=== PATIENT | male | born 1995 ===

== ENCOUNTER 2017-09-22 17:14 | Emergency (ER) | payer OTHER ==
[2017-09-22] MEDS ORDERED: METOCLOPRAMIDE HCL INJ 5 MG/ML 2 ML VIAL IV STA (18:10)
[2017-09-22] MEDS ORDERED: DEXAMETHASONE SOD INJ 4 MG/ML VIAL IV STA (18:10)
[2017-09-22] MEDS ORDERED: ACETAMINOPHEN 500 MG TAB PO STA (18:10)
[2017-09-22] MEDS ORDERED: DiphenhydrAMINE HCL 50 MG/ML VIAL IV STA (18:10)
--- NOTE | 2017-09-22 18:27 | EMERGENCY ROOM VISIT NOTE ---
History Report prepared by Roddy: Jemma Mcfarland Under the Supervision of: Dr. Luis Dejesus M.D. 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 The patient was sitting in class when he suddenly developed a diffuse headache. About 30 minutes after his headache started he got up and tried to walk. His headache went away, but he developed weakness and numbness/ tingling in his left leg. He states that it felt like his leg was asleep. He sat down and developed some numbness/tingling in his left arm and the left side of his face. This lasted for about 10 minutes and then resolved. He felt like he had some slurred speech as well. The patient went to [facility] and was advised to come to the ED for further evaluation. His numbness, tingling, and weakness have resolved. He is currently just complaining of a right-sided headache that he describes as sharp and rates as a 7/10 in severity. Positive nausea and vomiting. Vomiting helped to alleviate some of his pain. Negative LOC, recent travel, recent changes to medications, recent tick bites, family or personal history of migraines, family or personal history of seizures. Pt denies any recent trauma or injury to his head. Source of History: patient Onset: 3 hours CHURN TENDER Position: head Symptom Intensity: 7/10 Quality: sharp Timing: intermittent Modifying Factors (Relieving): other (vomiting) Associated Symptoms: + nausea, + vomiting, + weakness, + numbness (left extremities and left face), No LOC Review of Systems See HPI for pertinent positives and negatives. A total of ten systems were reviewed and were otherwise negative. Past Medical & Surgical Medical Problems: (1) Diabetes type 2, controlled Family History No pertinent history stated. Social History Smoking Status: Never Smoker Occupation Status: [employer] student Current/Historical Medications Scheduled Dapagliflozin-Metformin HCl (Xigduo Xr 10-1000 mg), 1 TAB PO DAILY Levothyroxine Sodium (Synthroid), 25 MCG PO DAILY Allergies Coded Allergies: No Known Allergies (Unverified , 09/22/17) Physical Exam Vital Signs Date Time Temp Pulse Resp B/P (MAP) Pulse Ox O2 Delivery O2 Flow Rate FiO2 09/22/17 22:25 36.6 78 18 141/80 97 Room Air 09/22/17 21:41 36.5 80 18 130/75 96 Room Air 09/22/17 20:02 36.4 86 18 131/78 Room Air 09/22/17 18:45 72 18 96 Room Air 09/22/17 18:40 100 Room Air 09/22/17 17:23 36.4 68 20 132/87 98 Room Air Physical Exam GENERAL: Awake, alert, well-appearing, NAD HENT: Normocephalic, atraumatic. EYES: Normal conjunctiva. Sclera non-icteric. NECK: Supple. No nuchal rigidity. FROM. No signs of meningismus. RESPIRATORY: CTAB, no rhonchi, wheezing, crackles CARDIAC: RRR, no MRG ABDOMEN: Soft, NTND, BS+ MSK: No chest wall TTP, no LE edema NEURO: CN 2-12 intact, 5/5 upper and lower extremity strength, no dysmetria, no drift, good finger to nose, no sensory deficits. SKIN: No rash or jaundice noted. Medical Decision & Procedures ER Provider Diagnostic Interpretation: Radiology results as stated below per my review and radiologist interpretation: HEAD WITHOUT CONTRAST (CT) CT DOSE: 537.48 mGy.cm HISTORY: Mental status change Evaluate for hemorrhage or pathology TECHNIQUE: Multiaxial CT images of the head were performed without the use of intravenous contrast. A dose lowering technique was utilized adhering to the principles of ALARA. Comparison: None. Findings: The paranasal sinuses and mastoid air cells are clear. The calvarium and skull base are intact. The ventricles and sulci are within normal limits. There is no mass, hematoma, midline shift, or acute infarct. There is suggestion transaxial image 16 of a possible triangular region of low density posterior to the right lateral ventricle. All this is all lobe most likely artifactual, an MRI of the brain is suggested as follow-up. Impression: 1. Triangular region of slightly diminished density posterior to the right lateral ventricle within the right occipital lobe region. 2. Although possibly artifactual, an MRI of the brain is suggested as follow-up. 3. No evidence for acute intracranial hemorrhage. The above report was generated using voice recognition software. It may contain grammatical, syntax or spelling errors. Electronically signed by: Tristian Barr M.D. 09/22/2017 7:12 PM Dictated Date/Time: 09/22/2017 6:59 PM MRI OF THE BRAIN WITHOUT AND WITH IV CONTRAST CLINICAL HISTORY: Headache. Slurred speech. Left leg numbness now resolved. Possible abnormal head CT. COMPARISON STUDY: Head CT performed earlier today. TECHNIQUE: Utilizing a 1.5 Namita magnet and dedicated coil, multiplanar, multiecho imaging of the brain was performed pre and postcontrast administration. IV administration of 10 mL of Gadavist contrast was uneventful. FINDINGS: There are no foci of restricted diffusion. No acute intracranial hemorrhage, midline shift or mass effect is present. Brain volume is normal. Ventricular system is normal. Basilar cisterns are patent. There are no extra-axial collections. Flow-voids for the major intracranial vessels are present. There is no intracranial mass or pathologic enhancement. There is no finding to correspond to the possible abnormality on prior head CT. Therefore, this was artifactual. Calvarial signal is maintained. Orbits, sinuses and mastoid air cells are unremarkable. No parenchymal signal abnormality is identified. IMPRESSION: Normal MRI of the brain. The possible abnormality on prior head CT was artifactual. Electronically signed by: Douglas Pollack M.D. 09/22/2017 9:43 PM Dictated Date/Time: 09/22/2017 9:39 PM Laboratory Results 09/22/17 18:20 Red Blood Count 5.36, Mean Corpuscular Volume 87.3, Mean Corpuscular Hemoglobin 32.5, Mean Corpuscular Hemoglobin Concent 37.2, Mean Platelet Volume 9.0, Neutrophils (%) (Auto) 79.2, Lymphocytes (%) (Auto) 15.9, Monocytes (%) (Auto) 4.1, Eosinophils (%) (Auto) 0.3, Basophils (%) (Auto) 0.2, Neutrophils # (Auto) 10.13, Lymphocytes # (Auto) 2.04, Monocytes # (Auto) 0.52, Eosinophils # (Auto) 0.04, Basophils # (Auto) 0.02 09/22/17 18:20 Test 09/22/17 17:26 09/22/17 18:20 Bedside Glucose 116 mg/dl (70-99) White Blood Count 12.79 K/uL (4.8-10.8) Red Blood Count 5.36 M/uL (4.7-6.1) Hemoglobin 17.4 g/dL (14.0-18.0) Hematocrit 46.8 % (42-52) Mean Corpuscular Volume 87.3 fL (80-100) Mean Corpuscular Hemoglobin 32.5 pg (25-34) Mean Corpuscular Hemoglobin Concent 37.2 g/dl (32-36) Platelet Count 181 K/uL (130-400) Mean Platelet Volume 9.0 fL (7.4-10.4) Neutrophils (%) (Auto) 79.2 % Lymphocytes (%) (Auto) 15.9 % Monocytes (%) (Auto) 4.1 % Eosinophils (%) (Auto) 0.3 % Basophils (%) (Auto) 0.2 % Neutrophils # (Auto) 10.13 K/uL (1.4-6.5) Lymphocytes # (Auto) 2.04 K/uL (1.2-3.4) Monocytes # (Auto) 0.52 K/uL (0.11-0.59) Eosinophils # (Auto) 0.04 K/uL (0-0.5) Basophils # (Auto) 0.02 K/uL (0-0.2) RDW Standard Deviation 38.2 fL (36.4-46.3) RDW Coefficient of Variation 12.1 % (11.5-14.5) Immature Granulocyte % (Auto) 0.3 % Immature Granulocyte # (Auto) 0.04 K/uL (0.00-0.02) Anion Gap 6.0 mmol/L (3-11) Estimated GFR () 138.3 Estimated GFR (Non- 119.3 BUN/Creatinine Ratio 14.4 (10-20) Calcium Level 9.4 mg/dl (8.5-10.1) Lyme Disease IgG Antibody NEG (NEG) Lyme Disease IgM Antibody NEG (NEG) Laboratory results reviewed by me. Medications Administered Medications (Trade) Dose Ordered Sig/Alisia Route Start Time Stop Time Status Last Admin Dose Admin Metoclopramide HCl (Reglan Inj) 10 mg NOW STAT IV 09/22/17 18:10 09/22/17 18:12 DC 09/22/17 18:44 10 MG Acetaminophen (Tylenol Tab) 1,000 mg NOW STAT PO 09/22/17 18:10 09/22/17 18:12 DC 09/22/17 18:41 1,000 MG Dexamethasone Sodium Phosphate (Decadron Inj) 10 mg NOW STAT IV 09/22/17 18:10 09/22/17 18:12 DC 09/22/17 18:42 10 MG Diphenhydramine HCl (Benadryl Inj) 50 mg NOW STAT IV 09/22/17 18:10 09/22/17 18:12 DC 09/22/17 18:41 50 MG Ondansetron HCl (Zofran Inj) 4 mg NOW STAT IV 09/22/17 20:02 09/22/17 20:03 DC 09/22/17 20:09 4 MG ECG Indication: weakness Rate (beats per minute): 79 Rhythm: normal sinus Findings: T-wave inversion (lead 3), other (right axis deviation, normal axis, normal intervals) ED Course 1757: The patient was evaluated in room C12B. A complete history and physical exam was performed. 1956: I updated the patient. His headache has improved but he is still nauseated. He is in agreement with the treatment plan and will be getting an MRI. 2147: I reassessed the patient at this time. He is feeling better and resting comfortably. I discussed the results and treatment plan with the patient. I answered all pertaining questions that he had. He expressed understanding and verbalized agreement. The patient will be discharged home. Medical Decision Differential diagnosis: Etiologies such as migraine headache, meningitis, sinusitis, CO exposure, ICH, SAH, infection, tumor, headache, sinus thrombosis, arterial dissection, as well as others were entertained. The patient is a 22 year old male with a past medical history of DM who presents to the ED with a cc of an intermittent headache beginning about 3 hours CHURN TENDER. She was seen and evaluated the bedside. Patient did complain of some intermittent headache as well as some left-sided numbness which he stated progressively went from his leg and then dissipated and then to his arm and also dissipated and then to the face. Patient states it felt like it was asleep and did not describe it as pins and needles. Patient denies any prior history of migraines or seizures. Patient denies any recent trauma does not take any blood thinning medications. Patient does complain of some mild headache behind the right eye. Patient has a normal and nonfocal neurologic exam. Patient did have blood work completed along with a CT of the brain. CT brain did show a questionable artifact. Given the patient's strange constellation of symptoms with intermittent headache the patient did have an MRI that was completed. This MRI was negative acute. We did discuss the possibility of seizure, complicated migraine, and transient ischemic attack. I believe this may have been more of a complicated migraine. Simple seizure is also possible but less likely. Less likely TIA given that the patient is a fairly young man without any known risk factors and the patient does not have any family history of stroke. Patient had negative Lyme's test in the patient' s other blood work was fairly unremarkable. Patient was not meningitic and was afebrile. Patient is deemed suitable for outpatient follow-up and treatment this time. Patient was given strict follow-up, discharge, and return precautions. All questions were answered. Patient was deemed suitable for outpatient follow-up at this time. Patient agreed with the plan of care and was safely discharged home. The chart was completed utilizing [employer] Speech voice recognition software. Grammatical errors, random word insertions, pronoun errors, and incomplete sentences are an occasional consequence of this system due to software limitations, ambient noise, and hardware issues. Any formal questions or concerns about the content, text, or information contained within the body of this dictation should be directly addressed to the physician for clarification. Medication Reconcilliation Current Medication List: was personally reviewed by me Blood Pressure Screening Patient's blood pressure: Normal blood pressure Impression Primary Impression: Migraine Scribe Attestation The scribe's documentation has been prepared under my direction and personally reviewed by me in its entirety. I confirm that the note above accurately reflects all work, treatment, procedures, and medical decision making performed by me. Departure Information Dispostion Home / Self-Care Referrals No Doctor, Assigned (PCP) [facility] Patient Instructions ED Headache Migraine, ED Smoking Cessation, My [facility] Additional Instructions Please return to the emergency department if you have worsening or recurrent symptoms not amenable to at-home treatment. Please call for a follow-up appointment with her primary care physician. Please take your medications as prescribed. If you have other concerns and/or complaints please feel free to also call your primary care physician's office or return the ED for further evaluation, management, and treatment. Please follow-up with [facility]. If you do have a recurrence of symptoms please return to the emergency department. You may take 600 mg Ibuprofen every 6 hours as needed for pain with food for no more than 2 consecutive days. You may take tylenol 1000 mg every 6 hours as needed for pain. You may take motrin and tylenol separately or at the same time. Take your medications as prescribed. You have been examined and treated today on an emergency basis only. This is not a substitute for, or an effort to provide, complete comprehensive medical care. It is impossible to recognize and treat all injuries or illnesses in a single emergency department visit. It is therefore important that you follow up closely with [facility], your PCP, and/or your specialist(s). Call as soon as possible for an appointment. Thank you for your time and consideration. I look forward to speaking with you again soon. Please don't hesitate to call us if you have any questions. Problem Qualifiers Primary Impression: Migraine Migraine type: unspecified Status migrainosus presence: without status migrainosus Intractability: not intractable Qualified Codes: G43.909 - Migraine, unspecified, not intractable, without status migrainosus
[2017-09-22 18:33] LABS: BASO % 0.2 %; BASO ABS # 0.02 K/uL (0-0.2); EOS % 0.3 %; EOS ABS # 0.04 K/uL (0-0.5); HEMATOCRIT 46.8 % (42-52); HEMOGLOBIN 17.4 g/dL (14.0-18.0); IG# 0.04 K/uL (0.00-0.02); LYMPH % 15.9 %; LYMPH ABS # 2.04 K/uL (1.2-3.4); MEAN CELL VOLUME 87.3 fL (80-100); MEAN CORPUSCULAR HEMOGLOBIN 32.5 pg (25-34); MEAN CORPUSCULAR HGB CONC 37.2 g/dl (32-36); MONO % 4.1 %; MONO ABS # 0.52 K/uL (0.11-0.59); NEUT % 79.2 %; NEUT ABS # 10.13 K/uL (1.4-6.5); PLATELET COUNT 181 K/uL (130-400); RED CELL DISTRIBUTION WIDTH CV 12.1 % (11.5-14.5); RED CELL DISTRIBUTION WIDTH SD 38.2 fL (36.4-46.3); WHITE BLOOD COUNT 12.79 K/uL (4.8-10.8)
[2017-09-22] MEDS ORDERED: LEVO25TA PO (18:35)
[2017-09-22] MEDS ORDERED: DAPA1TAB7 PO (18:35)
[2017-09-22 18:40] VITALS: O2SAT 100
[2017-09-22 18:51] LABS: BLOOD UREA NITROGEN 13 mg/dl (7-18); CALCIUM 9.4 mg/dl (8.5-10.1); CARBON DIOXIDE 28 mmol/L (21-32); CREATININE 0.92 mg/dl (0.60-1.40); GLUCOSE 127 mg/dl (70-99); POTASSIUM 4.4 mmol/L (3.5-5.1); SODIUM 136 mmol/L (136-145)
--- NOTE | 2017-09-22 19:13 | DIAGNOSTIC IMAGING REPORT ---
HEAD WITHOUT CONTRAST (CT) CT DOSE: 537.48 mGy.cm HISTORY: Mental status change Evaluate for hemorrhage or pathology TECHNIQUE: Multiaxial CT images of the head were performed without the use of intravenous contrast. A dose lowering technique was utilized adhering to the principles of ALARA. Comparison: None. Findings: The paranasal sinuses and mastoid air cells are clear. The calvarium and skull base are intact. The ventricles and sulci are within normal limits. There is no mass, hematoma, midline shift, or acute infarct. There is suggestion transaxial image 16 of a possible triangular region of low density posterior to the right lateral ventricle. All this is all lobe most likely artifactual, an MRI of the brain is suggested as follow-up. Impression: 1. Triangular region of slightly diminished density posterior to the right lateral ventricle within the right occipital lobe region. 2. Although possibly artifactual, an MRI of the brain is suggested as follow-up. 3. No evidence for acute intracranial hemorrhage. The above report was generated using voice recognition software. It may contain grammatical, syntax or spelling errors. Electronically signed by: Tristian Barr M.D. 09/22/2017 7:12 PM Dictated Date/Time: 09/22/2017 6:59 PM
[2017-09-22] MEDS ORDERED: ONDANSETRON INJ 2 MG/ML 2 ML VIAL IV STA (20:02)
[2017-09-22] MEDS ORDERED: GADAVIST IV PRN (21:30)
--- NOTE | 2017-09-22 21:45 | DIAGNOSTIC IMAGING REPORT ---
MRI OF THE BRAIN WITHOUT AND WITH IV CONTRAST CLINICAL HISTORY: Headache. Slurred speech. Left leg numbness now resolved. Possible abnormal head CT. COMPARISON STUDY: Head CT performed earlier today. TECHNIQUE: Utilizing a 1.5 Namita magnet and dedicated coil, multiplanar, multiecho imaging of the brain was performed pre and postcontrast administration. IV administration of 10 mL of Gadavist contrast was uneventful. FINDINGS: There are no foci of restricted diffusion. No acute intracranial hemorrhage, midline shift or mass effect is present. Brain volume is normal. Ventricular system is normal. Basilar cisterns are patent. There are no extra-axial collections. Flow-voids for the major intracranial vessels are present. There is no intracranial mass or pathologic enhancement. There is no finding to correspond to the possible abnormality on prior head CT. Therefore, this was artifactual. Calvarial signal is maintained. Orbits, sinuses and mastoid air cells are unremarkable. No parenchymal signal abnormality is identified. IMPRESSION: Normal MRI of the brain. The possible abnormality on prior head CT was artifactual. Electronically signed by: Douglas Pollack M.D. 09/22/2017 9:43 PM Dictated Date/Time: 09/22/2017 9:39 PM
[2017-09-22 22:25] VITALS: BP 141/80; PULSE 78; TEMP 36.6; O2SAT 97
== END 2017-09-22 22:26 | disposition home or self-care (01) ==
LOC: C.EDB 17:17 → C.EDC 22:26
DX: G43.909 Migraine, unspecified, not intractable, without status migrainosus (principal); E11.9 Type 2 diabetes mellitus without complications; Z79.899 Other long term (current) drug therapy

== ENCOUNTER 2017-09-30 19:36 | Emergency (ER) | payer OTHER ==
[~2017-09-30] VITALS: Ht 170.2 cm; Wt 106.1 kg
[~2017-09-30 19:36] MED LIST: DAPA1TAB7 PO; LEVO25TA PO
[2017-09-30 20:09] VITALS: Ht 170.2 cm; Wt 106.1 kg
--- NOTE | 2017-09-30 22:08 | EMERGENCY ROOM VISIT NOTE ---
History Report prepared by Roddy: Sarah Robb Under the Supervision of: Dr. Luis Dejesus M.D. First contact with patient: 21:45 Chief Complaint: NEURO SYMPTOMS Stated Complaint: LEFT SIDE OF BODY NUMB ABOUT AN HOUR AGO Nursing Triage Summary: Patient reports left side of body became numb and immediately followed by a migraine last week and he states "they told me if it happened again to come here. It happened but the migraine isn't as bad". History of Present Illness The patient is a 22 year old male with a past medical history of diabetes and hypothyroidism who presents to the ED with a cc of neurologic symptoms beginning around 1829 this evening. Positive headache. He states he was on campus when all of a sudden, the left side of his body became numb and he developed a migraine headache. He called his roommate to pick him up and came to the ED. He reports he took a nap in the waiting room while waiting to be seen, and when he woke up, his right leg was numb, but his left leg numbness had resolved. He has experienced similar symptoms in the past and states he was told to come to the ED if his symptoms returned. Source of History: patient Onset: 1829 this evening Position: other (left side of body) Timing: resolved Associated Symptoms: + headache Review of Systems See HPI for pertinent positives and negatives. A total of ten systems were reviewed and were otherwise negative. Past Medical & Surgical Medical Problems: (1) Diabetes type 2, controlled (2) Hypothyroidism Social History Smoking Status: Never Smoker Alcohol Use: occasionally Drug Use: none Marital Status: single Housing Status: lives with roommate Occupation Status: [employer] student Current/Historical Medications Scheduled Dapagliflozin-Metformin HCl (Xigduo Xr 10-1000 mg), 1 TAB PO DAILY Levothyroxine Sodium (Synthroid), 25 MCG PO DAILY Scheduled PRN Acetamin/Butalbital/Caffeine (Fioricet), 1 TAB PO TID PRN for Pain Ondansetron Hcl (Zofran), 4 MG PO Q8H PRN for Nausea Allergies Coded Allergies: No Known Allergies (Unverified , 09/22/17) Physical Exam Vital Signs Date Time Temp Pulse Resp B/P (MAP) Pulse Ox O2 Delivery O2 Flow Rate FiO2 09/30/17 23:00 78 16 138/84 98 09/30/17 22:19 36.7 80 18 134/77 97 Room Air 09/30/17 21:57 77 09/30/17 20:09 36.7 89 18 136/90 97 Room Air Physical Exam GENERAL: Awake, alert, well-appearing, NAD HENT: Normocephalic, atraumatic. EYES: Normal conjunctiva. Sclera non-icteric. NECK: Supple. No nuchal rigidity. FROM. RESPIRATORY: CTAB, no rhonchi, wheezing, crackles CARDIAC: RRR, no MRG ABDOMEN: Soft, NTND, BS+ MSK: No chest wall TTP, no LE edema NEURO: CN 2-12 intact, 5/5 upper and lower extremity strength, no dysmetria, no drift, good finger to nose, no sensory deficits. No clonus. SKIN: No rash or jaundice noted. Medical Decision & Procedures Laboratory Results Test 09/30/17 21:51 Bedside Glucose 109 mg/dl (70-99) Medications Administered Medications (Trade) Dose Ordered Sig/Alisia Route Start Time Stop Time Status Last Admin Dose Admin Acetaminophen/ Butalbital/ Caffeine (Fioricet Tab) 2 tab NOW STAT PO 09/30/17 22:09 09/30/17 22:10 DC 09/30/17 22:22 2 TAB Ibuprofen (Advil Tab) 800 mg STK-MED ONCE .ROUTE 09/30/17 22:17 09/30/17 22:18 DC 09/30/17 22:23 800 MG Ondansetron HCl (Zofran Odt) 4 mg NOW STAT PO 09/30/17 22:18 09/30/17 22:19 DC 09/30/17 22:21 4 MG ED Course 2200: The patient was evaluated in room A9B. A complete history and physical exam was performed. 2231: I discussed the patients case with Dr. Vogt, [facility] [place]. He will follow up with the patient in the clinic. 2249: I reevaluated the patient. He is feeling well and resting. I discussed his results and discharge instructions and he verbalized complete understanding and agreement. Medical Decision The patient is a 22 year old male with a past medical history of diabetes and hypothyroidism who presents to the ED with a cc of neurologic symptoms beginning around 1830 this evening. Triage Nursing notes reviewed. Differential diagnoses include but are not limited to complicated migraine, infectious etiology, auto-immune, TIA/CVA, seizure Patient was seen and evaluated the bedside. Of note I did see this patient approximately 8 days prior. During this time the patient had normal blood work and the patient did have negative CT and MRI of the brain. Patient had negative Lyme's test. Patient states that he did have some left-sided body numbness. Patient denies any falls and again he has had no changes since he was last seen. Patient stated he did have some mild headache on the right side of his head. Patient had a nonfocal and normal neurologic exam. The patient had no clonus. Patient denied any numbness or tingling or weakness during my exam. Patient had good finger to nose. I did discuss the patient with the on- call neurologist with whom he would follow-up. He didn't recommend any further workup this time. They stated he was seen in clinic. I did talk with our registered nurse hh case manager to help arrange a follow-up appointment. The patient was agreeable to this plan of care. Patient was deemed suitable for outpatient follow-up and treatment at this time. Patient was given strict follow-up, discharge, and return precautions. All questions were answered. Patient was deemed suitable for outpatient follow-up at this time. Patient agreed with the plan of care and was safely discharged home. Medication Reconcilliation Current Medication List: was personally reviewed by me Blood Pressure Screening Patient's blood pressure: Normal blood pressure Blood pressure disposition: Did not require urgent referral Consults Time Called: 2229 Consulting Physician: [facility] Returned Call: 2231 I discussed the patients case with [facility]. He will follow up with the patient in the clinic. Impression Primary Impression: Complicated migraine Scribe Attestation The scribe's documentation has been prepared under my direction and personally reviewed by me in its entirety. I confirm that the note above accurately reflects all work, treatment, procedures, and medical decision making performed by me. Departure Information Dispostion Home / Self-Care Prescriptions Ondansetron Hcl (ZOFRAN) 4 Mg Tab 4 MG PO Q8H Y for Nausea, #15 TAB Prov: Luis Dejesus M.D. 09/30/17 Acetamin/Butalbital/Caffeine (FIORICET) 1 Ea Tab 1 TAB PO TID Y for Pain, #15 TAB Prov: Luis Dejesus M.D. 09/30/17 Referrals No Doctor, Assigned (PCP) Grady Vogt M.D. [facility] Patient Instructions ED Headache Migraine, My [facility] Additional Instructions Please return to the emergency department if you have worsening or recurrent symptoms not amenable to at-home treatment. Please call for a follow-up appointment with her primary care physician. Please take your medications as prescribed. If you have other concerns and/or complaints please feel free to also call your primary care physician's office or return the ED for further evaluation, management, and treatment. You may take 600 mg Ibuprofen every 6 hours as needed for pain with food for no more than 2 consecutive days. You may take tylenol 1000 mg every 6 hours as needed for pain. You may take motrin and tylenol separately or at the same time. Take your medications as prescribed. We will try to help arrange a follow-up appointment for you with Dr. Grady Vogt a neurologist at [facility]. You have been examined and treated today on an emergency basis only. This is not a substitute for, or an effort to provide, complete comprehensive medical care. It is impossible to recognize and treat all injuries or illnesses in a single emergency department visit. It is therefore important that you follow up closely with [facility], your PCP, and/or your specialist(s). Call as soon as possible for an appointment. Thank you for your time and consideration. I look forward to speaking with you again soon. Please don't hesitate to call us if you have any questions.
[2017-09-30] MEDS ORDERED: IBUPROFEN 600 MG TAB PO STA (22:09)
[2017-09-30] MEDS ORDERED: BUTALBITAL/ACETAMIN/CAFFEINE TAB PO STA (22:09)
[2017-09-30] MEDS ORDERED: IBUPROFEN 200 MG TAB ONE (22:17)
[2017-09-30] MEDS ORDERED: ONDANSETRON 4MG OD TAB PO STA (22:18)
[2017-09-30 22:19] VITALS: TEMP 36.7
[2017-09-30] MEDS ORDERED: FRCT/ PO (22:53)
[2017-09-30] MEDS ORDERED: ONDA4TAB46 PO (22:53)
[2017-09-30 23:00] VITALS: BP 138/84; PULSE 78; O2SAT 98
== END 2017-09-30 23:02 | disposition home or self-care (01) ==
LOC: C.EDB 19:37 → C.EDA 23:02
DX: G43.109 Migraine with aura, not intractable, without status migrainosus (principal); E11.9 Type 2 diabetes mellitus without complications; E03.9 Hypothyroidism, unspecified